=== PATIENT | male | born 2005 | race Caucasian/White ===

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

== ENCOUNTER → 2024-07-27 08:08 | Outpatient (BNVA) | payer MEDICAID, SELFPAY | PROVIDERS: PCP Family Medicine; Visit Provider Nurse Practitioner | DX: S43.006A Unspecified dislocation of unspecified shoulder joint, initial encounter (principal); S42.92XA Fracture of left shoulder girdle, part unspecified, initial encounter for closed fracture; M24.412 Recurrent dislocation, left shoulder; M25.512 Pain in left shoulder; G89.29 Other chronic pain; V86.56XA Driver of dirt bike or motor/cross bike injured in nontraffic accident, initial encounter; X58.XXXA Exposure to other specified factors, initial encounter | CPT/HCPCS: 73030; 99204 ==

== ENCOUNTER 2024-08-07 08:03 | Outpatient (CLI) | payer MEDICAID, SELFPAY ==
--- NOTE | 2024-08-07 08:00 | CT_ITS ---
WS: [id number] NONCONTRAST CT LEFT SHOULDER TECHNIQUE: Noncontrast CT LEFT shoulder with coronal and sagittal reformatted images. CLINICAL INFORMATION: left shoulder fracture COMPARISON: 07/27/2024 DLP: 228.[address] scans at [facility] use at least one of these dose optimization techniques: automated exposure control; mA and/or kV adjustment per patient size (includes targeted exams where dose is matched to clinical indication); or iterative reconstruction. FINDINGS: Bony Bankart fracture inferior anterior glenoid with small local avulsed fragments. Additional smaller fracture deformity involving the mid glenoid anteriorly Additional possible displaced fragment measures approximately 7 mm displaced approximately 8 mm from the glenoid just inferior to the coracoid. This may represent benign ossicle or calcification and appears somewhat well-corticated. Bony Hill-Sachs deformity in the humeral head. No other acute fractures. Normal clavicle. Normal AC joint. Normal scapula. Visualized LEFT lung is well aerated. CT/CT shoulder LT wo con* [id number] IMPRESSION: 1. Bony Bankart fracture with locally avulsed fragments extending anterior pos terior 2. Bony Hill-Sachs deformity involving the humeral head. 3. Additional smaller fracture deformity involving the mid glenoid anteriorly 4. Additional somewhat well-corticated 7 mm ovoid bony fragment just inferior to the coracoid may present an additional avulsed fragment or benign ossicle/ca lcification 5. No other acute findings
== END 2024-08-07 08:04 | disposition home or self-care (01) ==
LOC: RAD 08:05
PROVIDERS: PCP Family Medicine; Visit Provider Nurse Practitioner
DX: S42.92XA Fracture of left shoulder girdle, part unspecified, initial encounter for closed fracture (principal); S43.432A Superior glenoid labrum lesion of left shoulder, initial encounter; S42.292A Other displaced fracture of upper end of left humerus, initial encounter for closed fracture; X58.XXXA Exposure to other specified factors, initial encounter; R93.6 Abnormal findings on diagnostic imaging of limbs
CPT/HCPCS: 73200